=== PATIENT | male | born 1945 | race Caucasian/White ===

== ENCOUNTER → 2016-12-03 | Day surgery (SDC) | payer OTHER ==
[2016-10-17 16:55] VITALS: BMI 30.4
[~2016-12-03] MED LIST: BUPIVACAINE 0.25%-EPINEPHRINE 1:200,000 30 ML ONE; CEFAZOLIN 1 GM VIAL ONE; EPHEDrine 50 MG/ML VIAL IM ONE; FENTANYL 100 MCG/2 ML VIAL IV ONE; FENTANYL 100 MCG/2 ML VIAL IV PRN; FENTANYL 100 MCG/2 ML VIAL ONE; HYDROmorphone 1 MG INJECTION IV PRN; LABETALOL 20 MG/4 ML SYRINGE IV PRN; LIDOCAINE 100 MG PFS IV ONE; MEPERIDINE 25 MG/ML TUBEX IV PRN; MORPHINE 2 MG/ML INJECTION ONE; ONDANSETRON HCL 4 MG ODT TAB PO PRN; ONDANSETRON HCL 4 MG/2 ML VIAL IV ONE; ONDANSETRON HCL 4 MG/2 ML VIAL IV PRN; OXYCODONE HCL 5 MG TABLET ONE; PROPOFOL 200 MG/20 ML VIAL IV ONE; hydrALAZINE 20 MG/ML VIAL IV PRN
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
[2016-12-03 10:07] VITALS: TEMP 98.2
--- NOTE | 2016-12-03 10:49 | HIMOPRPT ---
DATE OF PROCEDURE: 12/03/16 PREOPERATIVE DIAGNOSES: Symptomatic left inguinal hernia. POSTOPERATIVE DIAGNOSES: Same. PROCEDURES: Left inguinal hernia repair with mesh prosthesis. SURGEON: Tyshawn Meza MD ANESTHESIA: General. COMPLICATIONS: None. ESTIMATED BLOOD LOSS: Minimal. ANTIBIOTICS: Preoperative antibiotics given. INDICATIONS: Patient is a pleasant 71-year-old male who had been found to have symptomatic left inguinal hernia. We evaluated him and felt he would benefit from inguinal hernia repair. We explained the risks and benefits including the risk of infection, bleeding and anesthesia as well as the risk of recurrence, nerve entrapment and testicular devascularization. The patient understood and agreed. OPERATIVE NOTE: The patient was brought to the operating room and placed on the operating table in the supine position. After adequate amount of general anesthesia he was prepped and draped in sterile manner. When given the okay by anesthesia after appropriate time-out an inguinal incision was made through the skin subcutaneous tissues was scalpel dissection. Bleeding was controlled Bovie cautery. Dissection was carried down through the subcutaneous tissues to the external oblique. We infiltrated local anesthesia and then incised the external oblique along the lines of fibers out through the external ring. The inguinal floor was dissected free we found a large direct inguinal hernia. There was no indirect inguinal hernia. At that point we used a 1. Vicryl suture to bring the transversalis down to the conjoined tendon to reduce the direct inguinal hernia. When that was reduced we went ahead cut a piece of ultra Pro mesh to size and sutured it in place starting at the pubic tubercle and going along the shelving edge of Poupart's ligament with an 0 Prolene suture. Another 0 Prolene suture was used along the conjoined tendon and superiorly. Three 0 Prolene sutures were then used to bring the keyhole defect together so that the cord structures were neither too tight nor too loose but would allow the tip of the finger to go along side. Hemostasis was assured and then the wound was irrigated with copious amounts of saline. The external oblique was brought together with 3 0 Vicryl suture. Two layers of 3 0 Vicryl suture using the subcutaneous tissue and then 4 0 Monocryl to bring the skin together. Dermabond tissue adhesive was applied and allowed to dry. A dry dressing was then placed and the patient was awoke and taken recover room in excellent condition with correct sponge counts needle counts.
[2016-12-03 12:24] VITALS: PULSE 67
[2016-12-03 17:23] VITALS: BP 138/77
--- NOTE | 2016-12-03 17:23 | SC.ANESPOS ---
Post-Anesthesia Note LOC: Fully Awake Post-Anesthesia Assessment: Awake, Returned to Baseline, Hemodynamically Stable , Pain Control Adequate Phase I & II Recovery Complete: Yes Apparent Anesthesia Complication: No : N - Vital Signs Blood Pressure: 138/77 Pulse: 67 Resp Rate: 16 O2 Sat: 92 Temp: 98.2 F
== END ==
LOC: SDC 06:25
PROVIDERS: ATTEND Surgery
PROC: 0YU60JZ Supplement Left Inguinal Region with Synthetic Substitute, Open Approach (ICD-10-PCS; principal; 2016-12-03 08:35)
DX: K40.90 Unilateral inguinal hernia, without obstruction or gangrene, not specified as recurrent (principal); I10 Essential (primary) hypertension; Z86.73 Personal history of transient ischemic attack (TIA), and cerebral infarction without residual deficits; Z79.82 Long term (current) use of aspirin; Z79.899 Other long term (current) drug therapy
CPT/HCPCS: 49505; A9270; C1781; J0690; J2001; J2270; J2405; J3010; J3490

== ENCOUNTER 2016-12-04 08:56 | Emergency (ER) | payer OTHER ==
[2016-12-04] MEDS ORDERED: HYDROmorphone 1 MG INJECTION IV ONE (09:02)
[2016-12-04] MEDS ORDERED: NS 1,000 ML IV ONE (09:02)
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
[2016-12-04 09:12] VITALS: TEMP 98.3; BMI 29.7
[2016-12-04 09:25] LABS: AUTOMATED BASOPHIL 0.5 % (0-2); AUTOMATED EOSINOPHIL 1.3 % (0-5); AUTOMATED MONOCYTE 10.1 % (3-10); AUTOMATED NEUTROPHIL 82.1 % (45-76); MPV 8.3 fL (7.4-10.4)
[2016-12-04 09:56] LABS: BLOOD UREA NITROGEN 13 MG/DL (9-20); CALC CORRECTED 9.3 MG/DL (8.4-10.2); CALCIUM 9.2 MG/DL (8.4-10.2); CALCULATED OSMOLALITY 267 MOs/Kg (270-290); CHLORIDE 100 mEq/L (98-107); GLUCOSE 123 MG/DL (70-99); SODIUM LEVEL 138 mEq/L (137-146); TOTAL PROTEIN 7.3 G/DL (6.3-8.2)
[2016-12-04] MEDS ORDERED: KETOROLAC TROMETH 30 MG/ML VIAL IV ONE (10:10)
[2016-12-04] MEDS ORDERED: BUPIVACAINE 0.5% 30 ML VIAL ONE (10:51)
[2016-12-04] MEDS ORDERED: Acetaminophen, Intravenous 1,000 MG/100 ML IVBOT IV ONE (11:00)
[2016-12-04] MEDS ORDERED: BUPIVACAINE LIPOSOME/PF 1.3% 20 ML VIAL INF ONE (11:00)
[2016-12-04] MEDS ORDERED: HYDROmorphone 1 MG INJECTION ONE (11:30)
--- NOTE | 2016-12-04 11:56 | PCM.SURGRO ---
- Subjective Patient: Reports: Still having pain - Objective / Physical Exam Vital Signs: Temperature: 98.3 F (12/04/16 09:00) HR: 66 (12/04/16 11:34)RR: 18 (12/04/16 11: 34) BP: 118/71 (12/04/16 11:34)Pulse Ox: 98 (12/04/16 11:34) General: Alert, Oriented x3, Cooperative HEENT: Normal, PERRLA, EOMI Respiratory: Normal - CTA Cardiovascular: Regular rate Gastrointestinal: Soft, Bowel Sounds. negative: Distended, Tender Back: Normal. negative: Abrasion, CVA Tenderness Extremities: negative: Tenderness, Swelling, Edema, Clubbing, Cyanosis Psych/Mental Status: Appropriate, Cooperative Neurological: Other (Hyperparasthesia/Pain Lt groin.) Skin: Warm,Dry and Intact, No rashes, No breakdown Surgical wound: Clean/Dry, Intact, Approximated. negative: Erythema Lymphatics: Normal. negative: Adenopathy, Tender - Assessment and Plan (1) Postoperative lower abdominal pain Acute G89.18 - OTHER ACUTE POSTPROCEDURAL PAIN; R10.30 - LOWER ABDOMINAL PAIN , UNSPECIFIED Comment/Plan: Patient with pain out of proportion. Likely ilioinguinal nerve irritation. Will do nerve block with Experel and Bupivicain and use multimodal pain control. Patient in agreement.
[2016-12-04 12:28] VITALS: BP 115/70; PULSE 68
== END 2016-12-04 12:27 | disposition home or self-care (01) ==
LOC: ED 08:56
DX: G89.18 Other acute postprocedural pain (principal)
CPT/HCPCS: 36415; 80053; 85025; 96361; 96365; 96372; 96375; 99284; A9270; C9290; J0131; J1170; J1885; J3490